=== PATIENT | male | born 2000 | race Hispanic/Latino ===

== ENCOUNTER 2021-08-16 08:35 | Emergency (ER) | payer OTHER ==
[2021-08-16 09:49] LABS: Bilirubin Negative (Negative); Blood, Urine Negative (Negative); Clarity Clear (Clear); Glucose, Urine (Dipstick) Normal (Negative); Ketone, Urine Negative (Negative); Leukocyte Negative Leu/uL (Negative); Nitrite Negative (Negative); Protein, Urine (Dipstick) 10 mg/dL (Neg-Trace); Specific Gravity, Urine 1.037 (1.002-1.036)
[2021-08-17 15:59] LABS: Chlam.trachomatis by PCR,Urine Not Detected (NotDetected)
== END 2021-08-16 10:15 | disposition home or self-care (01) ==
LOC: ERS 08:35
DX: R10.30 Lower abdominal pain, unspecified (principal)
CPT/HCPCS: 76870; 81003; 87491; 87591; 93976